=== PATIENT | male | born 1975 | race Caucasian/White ===

== ENCOUNTER 2024-04-27 07:51 | Emergency (ER) | payer BC ==
[2024-04-27] MEDS ORDERED: FAMOTIDINE 20 MG/2 ML VIAL IV ONE (08:02)
[2024-04-27] MEDS ORDERED: PROMETHAZINE INJ 25 MG/ML AMP ONE (08:02)
[2024-04-27] MEDS ORDERED: NA CHLORIDE 0.9% 1,000 ML ONE (08:03)
[2024-04-27 08:28] LABS: Absolute Basophils 0.1 K/uL (0-0.5); Absolute Eosinophils 0.2 K/uL (0-0.5); Absolute Lymphocytes (CBC) 2.9 K/uL (0.7-4.9); Absolute Neutrophil 3.4 K/uL (1.8-8.0); Basophils % 0.9 % (0-1.3); Eosinophils % 2.2 % (0-4.4); Hematocrit 48.9 % (39.6-49.0); Lymphocytes % 38.9 % (15.3-44.8); MCH 34.6 pg (27.0-35.0); MCHC 34.8 g/dL (32.0-36.0); MCV 99.4 fL (80-100); MPV 7.9 fL (7.6-11.3); Monocytes % 13.1 % (3.3-12.3); Neutrophils % 44.9 % (41.7-73.7); Nucleated Red Blood Cells % 0.2 % (0-0); Platelets 248 thou/uL (152-406); RBC Red Blood Cell Count 4.92 M/uL (4.33-5.43); Red Cell Distribution Width 13.8 % (12.1-15.2)
[2024-04-27 08:48] LABS: Albumin 4.5 g/dL (3.4-5.0); Albumin/Globulin Ratio 1.6 (1.1-1.8); Anion Gap 9.5 mEq/L (5.0-15.0); Bilirubin Total 0.4 mg/dL (0.2-1.0); Globulin 2.9 g/dL (2.3-3.5); Potassium 3.5 mEq/L (3.5-5.1); Protein, Total 7.4 g/dL (6.4-8.2)
--- NOTE | 2024-04-27 08:58 | RAD REPORT ---
EXAM DESCRIPTION: CTAbdomen Pelvis W Contrast - 04/27/2024 8:51 am CLINICAL HISTORY: Abdominal pain. Abd pain;Nausea / vomiting COMPARISON: Abdomen Pelvis W Contrast dated 08/13/2023; CT ABD PELVIS W CONTRAST dated 02/25/2009 TECHNIQUE: Biphasic CT imaging of the abdomen and pelvis was performed with 100 ml non-ionic IV cont rast. All CT scans are performed using dose optimization technique as appropriate and may include automated exposure control or mA/KV adjustment according to patient size. FINDINGS: The lung bases are clear. The liver, spleen, pancreas, adrenal glands and kidneys are within normal limits. No bowel obstruction, free air, free fluid or abscess. Small fat containing umbilical hernia. The jaya endix is normal. Prominent stool is seen throughout the colon. No evidence of significant lymphadenop athy. No suspicious bony findings. IMPRESSION: No acute intra-abdominal or pelvic finding.
--- NOTE | 2024-04-27 10:10 | EDPHYS ---
Physician Documentation [facility] Name: Hudson Power Age: 48 yrs Sex: Male : 1975 Arrival Date: 04/27/2024 Time: 07:51 Bed 20 Private MD: ED Physician Main Mccain HPI: 04/27 10:06 This 48 yrs old Male presents to ER via EMS with complaints of anxiety, nausea/vomiting.rn 10:06 The patient presents to the emergency department with nausea, vomiting, abdominal pain, rn of the epigastric area. Onset: The symptoms/episode began/occurred today. Possible causes: unknown. The symptoms are aggravated by nothing. The symptoms are alleviated by nothing. Associated signs and symptoms: Pertinent positives: abdominal pain, nausea, vomiting, Pertinent negatives: fever, GI bleeding. Severity of symptoms: At their worst the symptoms were mild in the emergency department the symptoms are unchanged. The patient has experienced similar episodes in the past. The patient has not recently seen a physician. Patient reports feeling anxious and thinks might be having a panic attack. Reports feeling heart racing and tingling of entire body but also reports epigastric abdominal pain with vomiting. States gets nauseous with previous panic attacks and not sure if this is related. No blood in stool. States daily drinker. Has had acid problems before as well.. Historical: - Allergies: 07:56 No Known Allergies; rs5 - PMHx: 07:56 Anxiety; rs5 - PSHx: 07:56 None; rs5 - Immunization history:: Adult Immunizations up to date. - Infectious Disease History:: Denies. - Social history:: Smoking status: Patient denies any tobacco usage or history of. - Family history:: not pertinent. - Hospitalizations: : No recent hospitalization is reported. ROS: 10:06 Constitutional: Negative for fever, chills, and weight loss, Cardiovascular: Negative rn for chest pain, palpitations, and edema, Respiratory: Negative for shortness of breath, cough, wheezing, and pleuritic chest pain, Abdomen/GI: Positive for abdominal pain with nausea and vomiting Back: Negative for injury and pain, : Negative for injury, bleeding, discharge, and swelling, MS/Extremity: Negative for injury and deformity, Neuro: Positive for tingling over her entire body, worse in bilateral upper extremities Exam: 10:06 Constitutional: This is a well developed, well nourished patient who is awake, alert, rn and in no acute distress. Cardiovascular: Regular rate and rhythm. No pulse deficits. Respiratory: No increased work of breathing, no retractions or nasal flaring. Abdomen/GI: Soft, mild epigastric tenderness. No rebound or guarding Vital Signs: 07:53 BP 140 / 101; Pulse 84; Resp 18; Temp 97.8(O); Pulse Ox 99% ; rs5 09:10 BP 135 / 91; Pulse 80; Resp 18; Pulse Ox 99% on R/A; rs5 10:05 BP 128 / 81; Pulse 71; Resp 17; Pulse Ox 99% on R/A; rs5 MDM: 07:54 Patient medically screened. rn 10:06 Differential diagnosis: Nonspecific abd pain, gastritis, pancreatitis, viral rn gastroenteritis, gastroenteritis, Alcoholic gastritis, anxiety, panic attack. Data reviewed: vital signs, nurses notes, lab test result(s), radiologic studies, CT scan, and as a result, I will discharge patient. Counseling: I had a detailed discussion with the patient and/or guardian regarding the historical points, exam findings, and any diagnostic results supporting the discharge/admit diagnosis, lab results, radiology results, the need for outpatient follow up, to return to the emergency department if symptoms worsen or persist or if there are any questions or concerns that arise at home. Response to treatment: the patient's symptoms have markedly improved after treatment, and as a result, I will discharge patient. Special discussion: I discussed with the patient/guardian in detail that at this point there is no indication for admission to the hospital. It is understood, however, that if the symptoms persist or worsen the patient needs to return immediately for re-evaluation. ED course: Recommend alcohol discontinuation slowly as to not precipitate withdrawal. Will discharge home with antacid medication as might have alcoholic gastritis in addition to his anxiety.. 04/27 08:00 Order name: CBC with Diff; Complete Time: : rn 04/27 08:00 Order name: CMP; Complete Time: : rn 04/27 08:00 Order name: Lipase; Complete Time: : rn 04/27 08:00 Order name: CT Abd/Pelvis - IV Contrast Only; Complete Time: : rn 04/27 08:00 Order name: IV Saline Lock; Complete Time: 08:19 rn 04/27 08:00 Order name: Labs collected and sent; Complete Time: 08:19 rn Administered Medications: 08:02 Drug: NS 0.9% IV 1000 ml IV at 1 bolus Per protocol; 1000 mL bolus Route: IV; Rate: 1 rs5 bolus; Site: right antecubital; 08:20 Follow up: Response: No adverse reaction rs5 08:02 Drug: Famotidine IVP 20 mg IVP once; dilute with 10 mL 0.9% NaCl; give over 2 minutes rs5 Route: IVP; Site: right antecubital; 08:20 Follow up: Response: No adverse reaction rs5 08:02 Drug: Promethazine IVP 12.5 mg IVP once Route: IVP; Site: right antecubital; rs5 08:20 Follow up: Response: No adverse reaction rs5 Disposition Summary: 04/27/24 10:09 Discharge Ordered Notes: Location: Home rn Problem: new rn Symptoms: have improved rn Condition: Stable rn Diagnosis - Acute gastritis without bleeding rn - Anxiety disorder, unspecified rn Followup: rn - With: Private Physician - When: As needed - Reason: Recheck today's complaints, Re-evaluation by your physician Discharge Instructions: - Discharge Summary Sheet rn - Panic Attack rn - Gastritis, Adult rn - Generalized Anxiety Disorder, Adult rn - Managing Anxiety, Adult rn Forms: - Medication Reconciliation Form rn - Antibiotic internal review and audit compliance - Prescription Opioid Use rn - Patient Portal Instructions rn - Leadership Thank You Letter rn - Work release form rs5 Prescriptions: - Protonix 40 mg Oral Tablet - take 1 tablet ORAL route once daily; 30 tablet; Refills: 0, Product Selection rn Permitted Signatures: Dispatcher [employer] Main Ho MD MD rn Sotelo, Ricky, RN RN rs5
--- NOTE | 2024-04-27 10:10 | ER ---
Nurse's Notes [facility] Name: Hudson Power Age: 48 yrs Sex: Male : 1975 Arrival Date: 04/27/2024 Time: 07:51 Bed 20 Private MD: Diagnosis: Acute gastritis without bleeding;Anxiety disorder, unspecified Presentation: 04/27 07:53 Chief complaint: EMS states: Chest tightness and nausea that started this morning while rs5 at work. pt states "I have anxiety and I have episodes like this 1-2 days a week. I am not on any medication.". Coronavirus screen: At this time, the client does not indicate any symptoms associated with coronavirus-19. Ebola Screen: No symptoms or risks identified at this time. Initial Sepsis Screen: Does the patient meet any 2 criteria? No. Patient's initial sepsis screen is negative. Does the patient have a suspected source of infection? No. Patient's initial sepsis screen is negative. Risk Assessment: Do you want to hurt yourself or someone else? Patient reports no desire to harm self or others. Onset of symptoms was April 27, 2024. 07:53 Method Of Arrival: EMS: [facility] rs5 07:53 Acuity: QIANA 3 rs5 Historical: - Allergies: 07:56 No Known Allergies; rs5 - PMHx: 07:56 Anxiety; rs5 - PSHx: 07:56 None; rs5 - Immunization history:: Adult Immunizations up to date. - Infectious Disease History:: Denies. - Social history:: Smoking status: Patient denies any tobacco usage or history of. - Family history:: not pertinent. - Hospitalizations: : No recent hospitalization is reported. Screenin:55 [facility] ED Fall Risk Assessment (Adult) History of falling in the last 3 months, rs5 including since admission No falls in past 3 months (0 pts) Confusion or Disorientation No (0 pts) Intoxicated or Sedated No (0 pts) Impaired Gait No (0 pts) Mobility Assist Device Used No (0 pt) Altered Elimination No (0 pt) Score/Fall Risk Level 0 - 2 = Low Risk Oriented to surroundings, Maintained a safe environment. Abuse screen: Denies threats or abuse. Nutritional screening: No deficits noted. Tuberculosis screening: No symptoms or risk factors identified. Assessment: 07:54 General: Appears in no apparent distress. uncomfortable, Behavior is cooperative, rs5 anxious. Pain: Denies pain. Neuro: Level of Consciousness is awake, alert, obeys commands, Oriented to person, place, time, situation. Cardiovascular: Reports chest tightness Patient's skin is warm and dry. Rhythm is regular. Respiratory: Airway is patent Respiratory effort is even, unlabored, Respiratory pattern is regular, symmetrical. GI: Abdomen is round non-distended, Reports nausea. : No signs and/or symptoms were reported regarding the genitourinary system. EENT: No signs and/or symptoms were reported regarding the EENT system. Derm: Skin is intact, Skin is dry, Skin is normal. Musculoskeletal: Range of motion: intact in all extremities. 09:01 Reassessment: Patient and/or family updated on plan of care and expected duration. Pain rs5 level reassessed. Patient is alert, oriented x 3, equal unlabored respirations, skin warm/dry/pink. Patient states feeling better. General: Behavior is calm, cooperative. 10:05 Reassessment: No changes from previously documented assessment. rs5 Vital Signs: 07:53 BP 140 / 101; Pulse 84; Resp 18; Temp 97.8(O); Pulse Ox 99% ; rs5 09:10 BP 135 / 91; Pulse 80; Resp 18; Pulse Ox 99% on R/A; rs5 10:05 BP 128 / 81; Pulse 71; Resp 17; Pulse Ox 99% on R/A; rs5 ED Course: 07:53 Patient arrived in ED. rs5 07:54 Main Mccain MD is Attending Physician. rn 07:55 Patient has correct armband on for positive identification. Placed in gown. Bed in low rs5 position. Call light in reach. Side rails up X2. 07:55 No provider procedures requiring assistance completed. rs5 07:56 Triage completed. rs5 08:00 Guanako Smith, ALEKSEY is Primary Nurse. rs5 08:53 CT Abd/Pelvis - IV Contrast Only In Process Unspecified. EDMS 10:10 IV discontinued, intact, bleeding controlled, No redness/swelling at site. Pressure rs5 dressing applied. Administered Medications: 08:02 Drug: NS 0.9% IV 1000 ml IV at 1 bolus Per protocol; 1000 mL bolus Route: IV; Rate: 1 rs5 bolus; Site: right antecubital; 08:20 Follow up: Response: No adverse reaction rs5 08:02 Drug: Famotidine IVP 20 mg IVP once; dilute with 10 mL 0.9% NaCl; give over 2 minutes rs5 Route: IVP; Site: right antecubital; 08:20 Follow up: Response: No adverse reaction rs5 08:02 Drug: Promethazine IVP 12.5 mg IVP once Route: IVP; Site: right antecubital; rs5 08:20 Follow up: Response: No adverse reaction rs5 Medication: 08:11 VIS not applicable for this client. rs5 Outcome: 10:09 Discharge ordered by . rn 10:10 Discharged to home ambulatory, rs5 10:10 Condition: stable 10:10 Discharge instructions given to patient, family, Instructed on discharge instructions, follow up and referral plans. medication usage, Demonstrated understanding of instructions, follow-up care, medications, Prescriptions given X 1, 10:15 Patient left the ED. rs5 Signatures: Dispatcher [employer] EDCT Main Mccain MD MD rn Sotelo, Ricky, RN RN rs5 Corrections: (The following items were deleted from the chart) 17:09 10:15 IV discontinued, intact, bleeding controlled, No redness/swelling at site. rs5 Pressure dressing applied, rs5
[2024-04-27 10:28] VITALS: BP 140/101; TEMP 97.8; O2SAT 99
== END 2024-04-27 10:15 | disposition home or self-care (01) ==
LOC: ER 07:51
DX: K29.00 Acute gastritis without bleeding (principal); F41.9 Anxiety disorder, unspecified
CPT/HCPCS: 85025; 36415; 83690; 80053; 74177; 96375; 96374; 99284; Q9967; J2550; J7030